=== PATIENT | male | born 2000 | race American Indian/Alaskan Native ===

== ENCOUNTER 2025-05-28 14:21 | Emergency (ER) | payer OTHER, MEDICAID, SELFPAY ==
[2025-05-28 14:31] VITALS: BP 110/77; PULSE 91; RESP 17; TEMP 36.8; O2SAT 98; BMI 21.9
--- NOTE | 2025-05-28 14:40 | XR_ITS ---
Examination: CT abdomen and pelvis without contrast. Coronal 3-D reconstructions. Sagittal 2-D reconstructions. Date and time of exam:May 28, 2025 1805 hours Comparison February 25, 2023 INDICATIONS: Tenderness and bleeding around the patient's ostomy site CTDI: vol (mGy): 6.03 DLP: (mGycm): 40 Technique: Axial images of the abdomen have been obtained, 3 mm slice thickness Intravenous contrast material has not been administered. Low dose protocols were performed. One or more of the following dose reduction techniques were used; automated exposure control, adjustment of the mA and/or KV according to patient size, use of iterative reconstruction technique. Findings: No focal liver or splenic lesions No gallstones No pancreatic mass No renal or ureteral calculi, no hydronephrosis IVC filter satisfactory position No abscess or inflammation around the patient's ostomy site No bowel obstruction No diverticulitis Intact urinary bladder No prostatomegaly The osseous structures are intact IMPRESSION: No abscess or inflammation around the patient's ostomy site
--- NOTE | 2025-05-28 14:40 | PD.EDRME ---
Rapid Medical Screening Exam E Arrival date/time: 05/28/25 14:21 24-year-old male with a history of a colostomy presents to the emergency room with a chief complaint of pain tenderness and bleeding around his ostomy. I have greeted and performed a focused initial assessment of this patient. A comprehensive ED assessment and evaluation of the patient, analysis of all test results, and completion of the medical decision making process will be conducted by additional ED providers. Chief Complaint: Abdominal Pain Vital signs: Vital Signs Temperature 98.3 F 05/28/25 14:31 Pulse Rate 91 05/28/25 14:31 Respiratory Rate 17 05/28/25 14:31 Blood Pressure 110/77 05/28/25 14:31 Pulse Oximetry (%) 98 05/28/25 14:31 Oxygen Delivery Method Room Air 05/28/25 14:31 Vital signs reviewed by provider: Yes
[2025-05-28 15:03] LABS: Basophils # (Auto) 0.0 Thou/mm3 (0.0-0.2); Basophils % (Auto) 0 % (0-2.5); Eosinophils # (Auto) 0.0 Thou/mm3 (0.0-0.5); Eosinophils % (Auto) 0 % (0-10); Hematocrit 41.2 % (41.0-53.0); Hemoglobin 14.1 g/dL (13.5-16.0); Immature Granulocytes Auto 0.02 Thou/mm3 (0.00-0.00); Lymphocytes # (Auto) 2.3 Thou/mm3 (1.0-4.8); Lymphocytes % (Auto) 33 % (10-50); Mean Corpuscular HGB Conc 34.2 g/dl (31.0-37.0); Mean Corpuscular Hemoglobin 29.1 pg (25.0-35.0); Mean Corpuscular Volume 85 fL (80-100); Monocytes # (Auto) 0.5 Thou/mm3 (0.0-0.8); Monocytes % (Auto) 7 % (0-12); Neutrophils # (Auto) 4.2 Thou/mm3 (1.8-7.7); Neutrophils % (Auto) 60 % (37-80); Nucleated Red Blood Cell # 0.00 Thou/mm3 (0.00-0.00); Nucleated Red Blood Cell % 0 /100 WBC (0); Platelet Count 272 Thou/mm3 (140-440); RDW Standard Deviation 39.0 fL (35.1-43.9); Red Blood Count 4.84 Miln/mm3 (4.50-5.90); White Blood Count 7.1 Thou/mm3 (3.8-10.6)
[2025-05-28] MEDS: HYDROcodone/APAP 5/325 TABLET 1 TAB PO (15:08)
[2025-05-28 15:33] LABS: Anion Gap 10 (7-16); Blood Urea Nitrogen 5 mg/dL (9-23); Carbon Dioxide 26.9 mMol/L (20.0-31.0); Chloride 103 mMol/L (98-107); Creatinine (Component) 0.7 mg/dL (0.6-1.3); Potassium 4.3 mMol/L (3.4-5.1); Sodium 140 mMol/L (136-145)
[2025-05-28 15:34] LABS: Alanine Aminotransferase 9 U/L (10-49); Albumin, Serum 4.9 gm/dL (3.5-5.0); Albumin/Globulin Ratio 1.6 (1.2-2.2); Alkaline Phosphatase 59 U/L (46-116); Aspartate Amino Transferase 13 U/L (0-34); BUN/Creatinine Ratio 7 Ratio (12-20); Bilirubin,Total 3.0 mg/dL (0.3-1.2); Calcium 9.8 mg/dL (8.3-10.6); Calcium (Corrected) 9.8 mg/dL (8.5-10.1); Estimated Creatinine Clearance 144.9 mL/min (>60); Globulin 3.1 gm/dL (2.3-3.5); Glucose 104 mg/dL (74-106); Lipase 25 U/L (12-53); Osmolality,Calculated 276 (275-295); Total Protein 8.0 gm/dL (5.7-8.2); eGFR > 60 See Note
--- NOTE | 2025-05-28 16:08 | PD.EDADULT ---
ED General RME/HPI General Chief complaint: Abdominal Pain Stated complaint: Abdominal pain to left of ostomy site Time Seen by Provider: 05/28/25 16:09 Arrival date/time: 05/28/25 14:21 RME / HPI RME / HPI narrative: 05/28/25 14:21 24-year-old male with a history of a colostomy presents to the emergency room with a chief complaint of pain tenderness and bleeding around his ostomy. I have greeted and performed a focused initial assessment of this patient. A comprehensive ED assessment and evaluation of the patient, analysis of all test results, and completion of the medical decision making process will be conducted by additional ED providers. Related Data Home Medications ?Medication ?Instructions ?Recorded ?Confirmed hydrocodone 5 mg-acetaminophen 325 1 tab PO 3XD 12/03/22 02/25/23 mg tablet albuterol 90 mcg/actuation aerosol 90 mcg inhalation Q6H PRN Wheezing 02/25/23 03/04/23 inhaler famotidine 20 mg tablet 20 mg PO BID 02/25/23 02/25/23 hydroxyzine HCl 25 mg tablet 25 mg PO QID PRN Anxiety 02/25/23 02/25/23 pantoprazole 40 mg tablet,delayed 40 mg PO QDAY 02/25/23 02/25/23 release promethazine 25 mg tablet 25 mg PO Q6H PRN Nausea And 02/25/23 02/25/23 Vomiting Previous Rx's ?Medication ?Instructions ?Recorded folic acid 1 mg tablet 1 mg PO QDAY 30 days #30 tabs 12/17/22 metoprolol tartrate 25 mg tablet 25 mg PO BID 30 days #60 tabs 12/24/22 morphine 15 mg tablet,extended 15 mg PO Q12H PRN severe pain 03/06/23 release (scale score 7-10) #8 tabs tramadol 50 mg tablet 50 mg PO BID PRN pain 5 days #10 05/28/25 tabs Allergies Allergy/AdvReac Type Severity Reaction Status Date / Time Fish Containing Products Allergy Mild swelling Verified 05/28/25 14:26 Review of Systems Review of Systems Systems Reviewed: All systems reviewed, normal except as documented ED Exam Narrative Physical exam: GENERAL: NAD, AAOx3 HEENT: Moist mucosa. Eyes open, symmetrical, & clear CARDIO: Heart RRR, no obvious murmurs PULM: No noted coughing/dyspnea CTA B/L, no R/W/R GI: Abdomen soft, nondistended, pain on palpation in ostomy site no pain noted on ostomy bag SKIN/MSK/EXT: No wounds/rashes/edema/amputations, no pain on palpation. Pedal pulses present B/L NEURO: AAOx3, no focal neuro deficits, able to move all 4 extremities Course Course Course Narrative: See MDM Quality Measures none Orders Category Date Time Status Insert IV NOW Care 05/28/25 16:[address] abdomen pelvis wo con Stat Exams 05/28/25 14:40 Completed US gall bladder Stat Exams 05/28/25 16:18 Completed CBC Stat Lab 05/28/25 14:47 Completed CMP [Comprehensive Metabolic Panel] Stat Lab 05/28/25 14:47 Completed Lipase Stat Lab 05/28/25 14:47 Completed UA [Urinalysis] Stat Lab 05/28/25 14:40 Ordered Urine Culture Stat Lab 05/28/25 14:40 Ordered HYDROcodone*/APAP 5/325 [Lawrence 5/325] Med 05/28/25 14:40 Discontinued 1 tab PO X1 ONE HYDROmorphone INJ [Dilaudid Inj] Med 05/28/25 17:33 Discontinued 0.5 mg IVP X1 ONE Morphine Inj Med 05/28/25 16:19 Discontinued 2 mg IVP X1 ONE Ringers Lactated 1000 ml [Lactated Ringers] 1,000 ml Med 05/28/25 16:20 Discontinued IV 999 mls/hr traMADol HCL [Ultram] Med 05/28/25 17:51 Once 50 mg PO X1 ONE Vital Signs Vital signs: Vital Signs Temperature 98.3 F 05/28/25 14:31 Pulse Rate 91 05/28/25 14:31 Respiratory Rate 17 05/28/25 14:31 Blood Pressure 110/77 05/28/25 14:31 Pulse Oximetry (%) 98 05/28/25 14:31 Oxygen Delivery Method Room Air 05/28/25 14:31 Discharge Plan Plan Patient Disposition: HOME (Self Care) Prescriptions/Referrals Prescriptions/Med Rec: New tramadol 50 mg tablet 50 mg PO BID PRN (Reason: pain) 5 Days Qty: 10 0RF No Action hydrocodone-acetaminophen 5-325 mg tablet 1 tab PO 3XD folic acid 1 mg tablet 1 mg PO QDAY 30 Days Qty: 30 3RF metoprolol tartrate 25 mg tablet 25 mg PO BID 30 Days Qty: 60 2RF famotidine 20 mg Tablet 20 mg PO BID pantoprazole 40 mg Tablet,Delayed Release (Dr/Ec) 40 mg PO QDAY promethazine 25 mg Tablet 25 mg PO Q6H PRN (Reason: Nausea And Vomiting) hydroxyzine HCl 25 mg Tablet 25 mg PO QID PRN (Reason: Anxiety) albuterol 90 mcg/actuation Aerosol 90 mcg INHALATION Q6H PRN (Reason: Wheezing) morphine 15 mg tablet extended release 15 mg PO Q12H MDD 30 mg PRN (Reason: severe pain (scale score 7-10)) Qty: 8 0RF Referrals: Gordon Bravo PA-C [Primary Care Provider] - In 1 week Problem List Clinical Impression: Abdominal pain Patient/Caregiver Discharge Instructions Additional Instructions: Patient at this time can be safely discharged patient is vital signs are all stable and lab work and imaging studies are all negative for acute pathology. You have been prescribed tramadol 50 mg every 12 as needed please take this medication only as necessary. Please follow up with GI specialist Dr. Lazo at his office. [address] [place] [place] [address], Patient is instructed should his symptoms recur or worsen patient is instructed to return to the ER. Print Language: Belgian Stand Alone Forms: Nimisha Award Info., Patient Portal Info Letter MDM Narrative MDM hospital course: 24-year-old male with past medical history of hernia surgery, status post colostomy presented to the ED due to abdominal pain. Patient states that around 3 days ago patient started having very bad abdominal pain near his ostomy site when he checked it he noticed that he was having romie blood from his ostomy site. Pain has continued until today and blood comes out whenever he eats. Patient has stopped eating around 2 days ago as he is afraid of more blood coming out. On examination ostomy site looks clean no signs of blood in bag or in ostomy site. He denies drinking alcohol, cigarette use, illicit substances. He denies fever, chills, shortness of breath, palpitations, chest pain, recent travel, sick contacts. Labs reviewed CBC within normal limits, CMP shows elevated bilirubin 1619: Gallbladder ultrasound ordered, morphine 2 mg IV x 1 given 174: Spoke to gastroenterology who recommended following up with him as an outpatient for review of his ostomy. Patient at this time can be safely discharged patient is vital signs are all stable and lab work and imaging studies are all negative for acute pathology. Patient is instructed should his symptoms recur or worsen patient is instructed to return to the ER. Medication Administration(s) Medication Administration History Discontinued Medications Hydrocodone Bitart/Acetaminophen (Hydrocodone/Apap 5/325 Tablet) 1 tab PO X1 ONE Stop: 05/28/25 14:41 Last Admin: 05/28/25 15:08 Dose: 1 tab Documented By: ROEL Hydromorphone HCl (Hydromorphone Inj 2 Mg/Ml Vial) 0.5 mg IVP X1 ONE Stop: 05/28/25 17:34 Lactated Ringer's (Lactated Ringers) 1,000 mls @ 999 mls/hr IV .Q1H1M ONE Stop: 05/28/25 17:20 Last Infusion: 05/28/25 17:42 Dose: Infused Documented By: Admin: 05/28/25 16:41 Dose: 999 mls/hr Documented By: MECCA Morphine Sulfate (Morphine Sulf Inj 10 Mg/Ml Vial) 2 mg IVP X1 ONE Stop: 05/28/25 16:20 Last Admin: 05/28/25 16:39 Dose: 2 mg Documented By: DB
--- NOTE | 2025-05-28 16:18 | XR_ITS ---
Examination: Abdomen sonogram, Limited Date and time of exam: May 28, 2025, 1628 hours INDICATIONS: Right lower abdominal pain at the ostomy site 3 days with elevated bili ribbon Technique: Real-time cortez scale transabdominal sonographic images of the upper abdomen obtained. Findings: Negative for gallstones Gallbladder wall 0.4 cm no edema Common bile duct 0.1 cm Pancreatic head 1.2 cm There are 14.9 cm no liver lesions Normal hepatopedal portal venous flow Patent IVC IMPRESSION: Negative for cholelithiasis, negative for cholecystitis
[2025-05-28] MEDS: MORPHINE SULF INJ 10 MG/ML VIAL 2 MG IVP (16:39)
[2025-05-28] MEDS: RINGERS LACTATED 1000 ML 1,000 ML 999 ML IV (16:41)
--- NOTE | 2025-05-28 18:08 | PC.CC ---
Talyer PURCELL was consulted by flight dynamicist Alicia regarding resources for retirement for patient. Tayler PURCELL made face to face contact with patient introduced self, role, and reason for visit to patient. Patient appeared alert and oriented to self, location, and situation. ASW explained to the patient that unfortunately we do not provide vouchers to hotel/motel but we can provide him with different retirement information in [facility]. Patient was receptive to information. ASW provided patient with [facility] Resource Guide that had retirement information. Patient was provided with meal. ASW provided update to flight dynamicist Alicia.
[2025-05-28] MEDS: ONDANSETRON ODT 4 MG TABRAP PO (19:37)
== END 2025-05-28 19:40 | disposition home or self-care (01) ==
PROVIDERS: Nurse Practitioner Family; Emergency Provider Student in an Organized Health Care Education/Training Program; PCP Physician Assistant
DX: R10.9 Unspecified abdominal pain (principal)
CPT/HCPCS: 36415; 74176; 76705; 80053; 81001; 83690; 85025; 87086; 96361; 96374; 99284; J2270; J7120; Q0162; A9270

== ENCOUNTER 2025-05-28 20:09 | Emergency (ER) | payer OTHER, MEDICAID, SELFPAY ==
[2025-05-28 20:12] VITALS: BP 123/74; PULSE 80; RESP 18; TEMP 37.1; O2SAT 98; BMI 21.9
--- NOTE | 2025-05-28 20:24 | PD.EDSEIZ ---
ED Seizures RME/HPI General Chief Complaint: Seizure Stated Complaint: HAD SZ IN THE LOBBY OF [facility] Time Seen by Provider: 05/28/25 20:45 Arrival date/time: 05/28/25 20:09 RME / HPI RME / HPI Narrative: This section includes all my notes and documentations, including HPI, PE, and ED course. Bk Meeks MD HPI: 24 y/o male with Hx of Homelessness and PTSD presents with possible seizure just [employer]. 30 minutes ago, he was discharged from our ER. He presented with abdominal pain. After extensive workup, including blood tests and CT scan and ultrasound, he was discharged. Staff had difficulty discharging him because he declined to be discharged. Took multiple visits and talks by different staff members to discharge him. After discharge, he was walking around our ER. He reports almost passing out and thinks he had a seizure. He has history of seizures. No seizure medications currently. He didn't fall. Currently, no headache or dizziness. No speech or visual impairment. No loss of power in arms or legs. No chest pain or shortness of breath. No other complaints. ROS: All negative except as documented in HPI. Physical Exam: General: Alert and oriented. No acute distress. Eyes: Conjunctivae and lids clear. EOMI. PERRL. ENT: No signs of head trauma. Neck: Supple. No tenderness. Heart: RRR. Lungs: No respiratory distress. Good air movement. No rhonchi, wheezing, rales. Chest: No tenderness. Abdomen: Soft and nontender. Normal bowel sounds. No distension. No rebound or guarding. Back: No tenderness. Skin: Warm and dry. Neuro: Alert and oriented X 3. Cranial Nerves II-XII grossly intact. No peripheral motor deficits. Musculoskeletal: All major joints and bones are not tender with no limited ROM. I reviewed all diagnostic tests from his ER visit today several hours ago. Made decision no new diagnostic tests are indicated at this time. At this point, diagnoses include: Seizure-like activity. Treatment here included: Zofran 4 mg, Keppra 1 G. Patient remained stable. Prescribed Keppra and recommended more outpatient workup. Based on my best medical judgment, made decision no further evaluation or treatment indicated at this time. Patient understands and agrees to the discharge instructions customized and printed, see below. Discharge Instructions from Dr. Meeks printed for you: 1.? After listening to your story and my physical exam and reviewing your evaluation/treatment here an hour ago, no new diagnostic tests are indicated. Follow all the instructions given to you from here when you were discharged an hour ago. 2.? To prevent another possible seizure, take Keppra as prescribed until cleared by a doctor taking care of you. 3.? See a private doctor on 05/31/2025 for recheck and further care. Ask to review all test results and official radiology reports, to make sure you receive all necessary follow-ups and monitoring. Ask for help with more workup and treatment not available here in the ER, including EEG (testing electrical activity of the brain) and referral to see a neurologist (seizure specialist). 4.? Seek immediate medical care with another seizure or with any concerns. Bk Meeks MD Related Data Home Medications ?Medication ?Instructions ?Recorded ?Confirmed hydrocodone 5 mg-acetaminophen 325 1 tab PO 3XD 12/03/22 02/25/23 mg tablet albuterol 90 mcg/actuation aerosol 90 mcg inhalation Q6H PRN Wheezing 02/25/23 03/04/23 inhaler famotidine 20 mg tablet 20 mg PO BID 02/25/23 02/25/23 hydroxyzine HCl 25 mg tablet 25 mg PO QID PRN Anxiety 02/25/23 02/25/23 pantoprazole 40 mg tablet,delayed 40 mg PO QDAY 02/25/23 02/25/23 release promethazine 25 mg tablet 25 mg PO Q6H PRN Nausea And 02/25/23 02/25/23 Vomiting Previous Rx's ?Medication ?Instructions ?Recorded folic acid 1 mg tablet 1 mg PO QDAY 30 days #30 tabs 12/17/22 metoprolol tartrate 25 mg tablet 25 mg PO BID 30 days #60 tabs 12/24/22 morphine 15 mg tablet,extended 15 mg PO Q12H PRN severe pain 03/06/23 release (scale score 7-10) #8 tabs levetiracetam 500 mg tablet 500 mg PO BID #60 tabs 05/28/25 (Keppra) tramadol 50 mg tablet 50 mg PO BID PRN pain 5 days #10 05/28/25 tabs Allergies Allergy/AdvReac Type Severity Reaction Status Date / Time Fish Containing Products Allergy Mild swelling Verified 05/28/25 20:16 Review of Systems Review of Systems Systems Reviewed: All systems reviewed, normal except as documented Past Medical History Past Medical History CARDIAC: Positive Cardiac Disorders and Deep Vein Thrombosis GASTROINTESTINAL: Positive Gastrointestinal Disorders, Pancreatitis (PSEUDOCYST) and Gastrointestinal Bleed PSYCHO/SOCIAL: Positive Post Traumatic Stress Disorder OTHER HISTORY: Positive Chicken Pox and Clostridium Difficile Surgical History SURGICAL: Positive Abdominal Surgery ED Exam Narrative Physical exam: Refer to [facility] Course Quality Measures none Orders Category Date Time Status Ondansetron Odt [Zofran Odt] Med 05/28/25 20:45 Discontinued 4 mg PO X1 ONE levETIRAcetam [Keppra] Med 05/28/25 20:45 Discontinued 1,000 mg PO X1 ONE Vital Signs Vital signs: Vital Signs Temperature 98.7 F 05/28/25 20:12 Pulse Rate 80 05/28/25 20:12 Respiratory Rate 18 05/28/25 20:12 Blood Pressure 123/74 05/28/25 20:12 Pulse Oximetry (%) 98 05/28/25 20:12 Oxygen Delivery Method Room Air 05/28/25 20:12 Seizure MDM Narrative MDM Narrative:: Scribe Attestation: I, Noemy Fernández, am scribing for and in the presence of Dr. Meeks. Provider Notation: Although this document has been carefully reviewed, there may still be some phonetic and other typographical errors.? These errors are purely grammatical due to imperfections in the software program and should not be construed in any way to? compromise the substance of the patient's medical care during this visit. 24 y/o male with Hx of Homelessness and PTSD presents with possible seizure just [employer]. 30 minutes ago, he was discharged from our ER. He presented with abdominal pain. After extensive workup, including blood tests and CT scan and ultrasound, he was discharged. Staff had difficulty discharging him because he declined to be discharged. Took multiple visits and talks by different staff members to discharge him. After discharge, he was walking around our ER. He reports almost passing out and thinks he had a seizure. He has history of seizures. No seizure medications currently. He didn't fall. Currently, no headache or dizziness. No speech or visual impairment. No loss of power in arms or legs. No chest pain or shortness of breath. No other complaints. Patient data External records reviewed:: [facility] previous records (Reviewed prior ED records from 05/28/2025. Patient was seen for Abdominal pain.) Clinical information provided by:: patient Social determinants that could affect healthcare access:: housing (Homeless) Patient has the following chronic illnesses:: Deep Vein Thrombosis, Pancreatitis (PSEUDOCYST), Gastrointestinal Bleed, Post Traumatic Stress Disorder How is presenting disease/condition affected by chronic disease/condition?: exacerbated by Evaluation data The following diagnostics were reviewed and interpreted by me:: other (specify) (N/A) Lab and/or radiology exams considered but not ordered:: None Interpretation Summary: No diagnostics ordered. Medications / Prescriptions Medications or Prescriptions considered but not ordered:: None Medication administrations:: Medication Administration History Discontinued Medications Levetiracetam (Levetiracetam 250 Mg Tablet) 1,000 mg PO X1 ONE Stop: 05/28/25 20:46 Last Admin: 05/28/25 21:09 Dose: 1,000 mg Documented By: REGINO Ondansetron HCl (Ondansetron Odt 4 Mg Tabrap) 4 mg PO X1 ONE; Protocol Stop: 05/28/25 20:46 Last Admin: 05/28/25 21:10 Dose: 4 mg Documented By: REGINO Zofrbrady 4 mg, Keppra 1 G. Consultations Consultation(s) initiated? (list below): No Diagnosis Seizure Differential Diagnosis: intractable seizure disorder, febrile convulsion, focal seizure, generalized seizure, new onset seizure, epileptic seizure and status epilepticus Most likely diagnosis given after review of the tests above:: Seizure-like activity Admission Indicated Admission indicated?: not indicated Explain why admission is indicated or not indicated:: With significant improvement and no condition needing emergent intervention, there was no indication for admission. Admission Request Was there a request for admission?: No Disposition Plan Disposition Plan: Discharge Discharge Attestation Discharge Attestation: The patient and all family members were given an opportunity to ask questions and understood the discharge instructions. Discharge instructions specifically effects, indications for sooner follow up or return to the emergency department, and the expected course of current diagnosis. Patient condition: Stable Discharge Plan Plan Patient Disposition: HOME (Self Care) Prescriptions/Referrals Prescriptions/Med Rec: New levetiracetam [Keppra] 500 mg tablet 500 mg PO BID Qty: 60 0RF No Action hydrocodone-acetaminophen 5-325 mg tablet 1 tab PO 3XD folic acid 1 mg tablet 1 mg PO QDAY 30 Days Qty: 30 3RF metoprolol tartrate 25 mg tablet 25 mg PO BID 30 Days Qty: 60 2RF famotidine 20 mg Tablet 20 mg PO BID pantoprazole 40 mg Tablet,Delayed Release (Dr/Ec) 40 mg PO QDAY promethazine 25 mg Tablet 25 mg PO Q6H PRN (Reason: Nausea And Vomiting) hydroxyzine HCl 25 mg Tablet 25 mg PO QID PRN (Reason: Anxiety) albuterol 90 mcg/actuation Aerosol 90 mcg INHALATION Q6H PRN (Reason: Wheezing) morphine 15 mg tablet extended release 15 mg PO Q12H MDD 30 mg PRN (Reason: severe pain (scale score 7-10)) Qty: 8 0RF tramadol 50 mg tablet 50 mg PO BID PRN (Reason: pain) 5 Days Qty: 10 0RF Referrals: No Primary/Family,Physician [Primary Care Provider] - In 1 week Problem List Clinical Impression: Seizure-like activity Patient/Caregiver Discharge Instructions Discharge Activity: activity as tolerated Education Materials: ED Seizure, Recurrent (Adult) Additional Instructions: Discharge Instructions from Dr. Meeks printed for you: 1.? After listening to your story and my physical exam and reviewing your evaluation/treatment here an hour ago, no new diagnostic tests are indicated. Follow all the instructions given to you from here when you were discharged an hour ago. 2.? To prevent another possible seizure, take Keppra as prescribed until cleared by a doctor taking care of you. 3.? See a private doctor on 05/31/2025 for recheck and further care. Ask to review all test results and official radiology reports, to make sure you receive all necessary follow-ups and monitoring. Ask for help with more workup and treatment not available here in the ER, including EEG (testing electrical activity of the brain) and referral to see a neurologist (seizure specialist). 4.? Seek immediate medical care with another seizure or with any concerns. Print Language: Armenian Stand Alone Forms: Nimisha Award Info., Patient Portal Info Letter
[2025-05-28] MEDS: ONDANSETRON ODT 4 MG TABRAP PO (21:10)
== END 2025-05-28 21:16 | disposition home or self-care (01) ==
PROVIDERS: Emergency Provider Emergency Medicine
DX: R56.9 Unspecified convulsions (principal)
CPT/HCPCS: 99283; Q0162; A9270

== ENCOUNTER 2025-05-28 23:51 | Emergency (ER) | payer OTHER, MEDICAID, SELFPAY ==
--- NOTE | 2025-05-28 23:54 | PD.EDSEIZ ---
ED Seizures RME/HPI General Chief Complaint: Seizure Stated Complaint: SYNCOPE Time Seen by Provider: 05/29/25 00:53 Arrival date/time: 05/28/25 23:51 RME / HPI RME / HPI Narrative: This section includes all my notes and documentations, including HPI, PE, and ED course. Bk Meeks MD HPI: 24 y/o male with Hx of PTSD and HTN BIBA with possible fall and possible seizure. He was seen in our ER yesterday twice. He declined to be discharged and it was difficult discharging him. Possibly, his mom heard him fall in another room. Possible seizure activity noted. Patient reports remembering the seizure. He reports no head injury. Currently, he reports headache. No speech or visual impairment. No chest pain or shortness of breath. No loss of power in the arms or legs. No other complaints. ROS: All negative except as documented in HPI. Physical Exam: General: Alert and oriented. No acute distress. Eyes: Conjunctivae and lids clear. EOMI. PERRL. ENT: No signs of head trauma. Neck: Supple. No tenderness. Heart: RRR. Lungs: No respiratory distress. Good air movement. No rhonchi, wheezing, rales. Chest: No tenderness. Abdomen: Soft and nontender. Normal bowel sounds. No distension. No rebound or guarding. Back: No tenderness. Skin: Warm and dry. Neuro: Alert and oriented X 3. Cranial Nerves II-XII grossly intact. No peripheral motor deficits. Musculoskeletal: All major joints and bones are not tender with no limited ROM. I reviewed EMS notes. I reviewed all diagnostic test results: My interpretation of the CXR is NAD. My review of the Head/Brain CT report is NAD. My review of the Facial Bones CT report is no fracture. My review of the C-Spine CT report is no fracture. My review of the Chest/Abdomen/Pelvis CT report is NAD. Blood and urine test remarkable for positive UDS for opiates and fentanyl. At this point, diagnoses include: Possible recurrent seizures with positive UDS for opiates and fentanyl. Treatment here included: IVF, Keppra 2,000 mg, Zofran 4 mg. During the ED course, patient had seizure-like activity. With pain stimulus rubbing his chest, he woke up and mental status returned to baseline. Patient demanded narcotics for his severe headache. Dilaudid 0.1 mg given twice. Recommended more outpatient management. Based on my best medical judgment, made decision no further evaluation or treatment indicated at this time. Patient understands and agrees to the discharge instructions customized and printed, see below. Discharge Instructions from Dr. Meeks printed for you: 1. After extensive evaluation, there is no life-threatening condition. Such as stroke or brain tumor. 2. To prevent another seizure like activity, take Keppra as prescribed until cleared by a doctor taking care of you. 3. See a private doctor on 05/31/2025 for recheck and further care. Ask to review all test results and official radiology reports from your multiple visits here today and yesterday, to make sure you receive all necessary follow-ups and monitoring. Ask for help with more workup and treatment, including EEG (testing electrical activity of the brain) and referral to see a neurologist (seizure specialist). To make sure there is no serious intra-abdominal condition, ask for help with more investigation not available here in the ER. Such as EGD or scoping the stomach, colonoscopy or scoping the colon, and referral to see midlevel provider. Until cleared by a doctor taking care of you, avoid activity alone (including standing and walking and driving) to prevent severe injury if you were to have another seizure-like activity. 4. Seek immediate medical care with any concerns. Bk Meeks MD Related Data Home Medications ?Medication ?Instructions ?Recorded ?Confirmed hydrocodone 5 mg-acetaminophen 325 1 tab PO 3XD 12/03/22 02/25/23 mg tablet albuterol 90 mcg/actuation aerosol 90 mcg inhalation Q6H PRN Wheezing 02/25/23 03/04/23 inhaler famotidine 20 mg tablet 20 mg PO BID 02/25/23 02/25/23 hydroxyzine HCl 25 mg tablet 25 mg PO QID PRN Anxiety 02/25/23 02/25/23 pantoprazole 40 mg tablet,delayed 40 mg PO QDAY 02/25/23 02/25/23 release promethazine 25 mg tablet 25 mg PO Q6H PRN Nausea And 02/25/23 02/25/23 Vomiting Previous Rx's ?Medication ?Instructions ?Recorded folic acid 1 mg tablet 1 mg PO QDAY 30 days #30 tabs 12/17/22 metoprolol tartrate 25 mg tablet 25 mg PO BID 30 days #60 tabs 12/24/22 morphine 15 mg tablet,extended 15 mg PO Q12H PRN severe pain 03/06/23 release (scale score 7-10) #8 tabs levetiracetam 500 mg tablet 500 mg PO BID #60 tabs 05/28/25 (Keppra) tramadol 50 mg tablet 50 mg PO BID PRN pain 5 days #10 05/28/25 tabs gabapentin 100 mg capsule 100 mg PO BID pain #20 caps 05/29/25 (Neurontin) levetiracetam 500 mg tablet 500 mg PO BID #60 tabs 05/29/25 (Keppra) levofloxacin 500 mg tablet 500 mg PO Q24H infection 7 days #7 05/29/25 tabs Allergies Allergy/AdvReac Type Severity Reaction Status Date / Time Fish Containing Products Allergy Mild swelling Verified 05/29/25 07:30 Review of Systems Review of Systems Systems Reviewed: All systems reviewed, normal except as documented Past Medical History Past Medical History CARDIAC: Positive Cardiac Disorders, Deep Vein Thrombosis and Hypertension GASTROINTESTINAL: Positive Gastrointestinal Disorders, Pancreatitis and Gastrointestinal Bleed PSYCHO/SOCIAL: Positive Post Traumatic Stress Disorder OTHER HISTORY: Positive Chicken Pox and Clostridium Difficile Surgical History SURGICAL: Positive Abdominal Surgery ED Exam Narrative Physical exam: Refer to HPI Course Course Course Narrative: CXR is ordered for determining the etiology of shortness of breath. Quality Measures none Orders Category Date Time Status EKG (ED ONLY) *Do not use* NOW Care 05/29/25 00:03 Completed Saline [Insert IV] NOW Care 05/29/25 00:01 Completed Straight [In and Out Catheter] X1 Care 05/29/25 00:[address] cervical spine wo con Stat Exams 05/29/25 00:[address] chest abdomen pelvis wo Stat Exams 05/29/25 00:[address] facial bones wo con Stat Exams 05/29/25 00:[address] head/brain wo con Stat Exams 05/29/25 00:02 Completed EKG (ED Only) Stat Exams 05/29/25 00:03 Ordered XR chest 1V portable Stat Exams 05/29/25 00:03 Completed Acetaminophen Stat Lab 05/29/25 00:36 Completed Alcohol, Blood Medical Stat Lab 05/29/25 00:36 Completed Ammonia Stat Lab 05/29/25 00:36 Completed Amylase Stat Lab 05/29/25 00:36 Completed Beta Hydroxybutyrate Stat Lab 05/29/25 00:36 Completed Bilirubin,Direct Stat Lab 05/29/25 00:36 Completed CBC Stat Lab 05/29/25 00:36 Completed CK [Creatine Kinase] Stat Lab 05/29/25 00:36 Completed CMP [Comprehensive Metabolic Panel] Stat Lab 05/29/25 00:36 Completed CRP [C-Reactive Protein] Stat Lab 05/29/25 00:36 Completed Drug Screen,Urine Stat Lab 05/29/25 02:22 Completed Free T4 (Free Thyroxine) Stat Lab 05/29/25 00:36 Completed Lactate (Lactic Acid) Stat Lab 05/29/25 00:36 Completed Lipase Stat Lab 05/29/25 00:36 Completed Magnesium Stat Lab 05/29/25 00:36 Completed PT [Prothrombin Time with INR] Stat Lab 05/29/25 00:36 Completed PTT [Partial Thromboplastin Time] Stat Lab 05/29/25 00:36 Completed Procalcitonin Stat Lab 05/29/25 00:36 Completed Salicylate Stat Lab 05/29/25 00:36 Completed TSH [Thyroid Stimulating Hormone] Stat Lab 05/29/25 00:36 Completed Troponin I Stat Lab 05/29/25 00:36 Completed UA, C/S IF [Urinalysis, C/S if Indicated] Stat Lab 05/29/25 02:22 Completed ACETAMINOPHEN w/COD 300-30 [Tylenol w/Cod #3] Med 05/29/25 01:04 Discontinued 2 tab PO X1 ONE HYDROmorphone INJ [Dilaudid Inj] Med 05/29/25 02:07 Discontinued 0.1 mg IVP X1 ONE HYDROmorphone INJ [Dilaudid Inj] Med 05/29/25 04:14 Discontinued 0.1 mg IVP X1 ONE LORazepam [Ativan Inj] Med 05/29/25 00:02 Discontinued 1 mg IVP X1 ONE Ondansetron Inj [Zofran Inj] Med 05/29/25 00:02 Discontinued 4 mg IVP X1 ONE Sodium Chloride 0.9% 1000 ml [Ns] 1,000 ml Med 05/29/25 00:02 Discontinued IV 999 mls/hr levETIRAcetam INJ [Keppra Inj] Med 05/29/25 00:02 Discontinued 1,500 mg IVP X1 ONE levETIRAcetam INJ [Keppra Inj] Med 05/29/25 00:33 Discontinued 2,000 mg IVP X1 ONE Vital Signs Vital signs: Vital Signs Temperature 98.4 F 05/28/25 23:56 Pulse Rate 91 05/28/25 23:56 Respiratory Rate 19 05/28/25 23:56 Blood Pressure 114/73 05/28/25 23:56 Pulse Oximetry (%) 98 05/28/25 23:56 Seizure MDM Narrative MDM Narrative:: Scribe Attestation: INoemy, am scribing for and in the presence of Dr. Meeks. Provider Notation: Although this document has been carefully reviewed, there may still be some phonetic and other typographical errors.? These errors are purely grammatical due to imperfections in the software program and should not be construed in any way to? compromise the substance of the patient's medical care during this visit. 24 y/o male with Hx of PTSD and HTN BIBA from home presents with twitching and fall x just [employer]. Mother heard a loud noise in the kitchen and called EMS. Patient was just discharged from ED for seizure-like activity. Patient was treated with Keppra and Zofran. No other complaints. Patient data External records reviewed:: [facility] previous records (Reviewed prior ED record from 05/28/25. Patient was seen for Seizure-like activity.) and EMS form Clinical information provided by:: patient and EMS Social determinants that could affect healthcare access:: none Patient has the following chronic illnesses:: Deep Vein Thrombosis, Hypertension, Pancreatitis, Gastrointestinal Bleed, Post Traumatic Stress Disorder How is presenting disease/condition affected by chronic disease/condition?: exacerbated by Evaluation data The following diagnostics were reviewed and interpreted by me:: lab results, radiology exam(s) and EKG tracing(s) (My interpretation of the EKG: NSR (75 bpm) with no ST-T changes. Bk Meeks MD) Lab and/or radiology exams considered but not ordered:: None Interpretation Summary: Deep Vein Thrombosis, Hypertension, Pancreatitis, Gastrointestinal Bleed, Post Traumatic Stress Disorder Medications / Prescriptions Medications or Prescriptions considered but not ordered:: None Medication administrations:: Medication Administration History Discontinued Medications Acetaminophen/Codeine Phosphate (Acetaminophen W/Cod 300-30 Tablet) 2 tab PO X1 ONE Stop: 05/29/25 01:05 Last Admin: 05/29/25 01:12 Dose: 2 tab Documented By: IFTIKHAR Hydromorphone HCl (Hydromorphone Inj 2 Mg/Ml Vial) 0.1 mg IVP X1 ONE Stop: 05/29/25 02:08 Last Admin: 05/29/25 02:25 Dose: 0.1 mg Documented By: IFTIKHAR Hydromorphone HCl (Hydromorphone Inj 2 Mg/Ml Vial) 0.1 mg IVP X1 ONE Stop: 05/29/25 04:15 Last Admin: 05/29/25 04:46 Dose: 0.1 mg Documented By: IFTIKHAR Sodium Chloride (Ns) 1,000 mls @ 999 mls/hr IV .Q1H1M ONE Stop: 05/29/25 01:02 Last Infusion: 05/29/25 02:26 Dose: Infused Documented By: Admin: 05/29/25 01:05 Dose: 999 mls/hr Documented By: IFTIKHAR Levetiracetam (Levetiracetam Inj 100 Mg/Ml Vial 5ml) 1,500 mg IVP X1 ONE Stop: 05/29/25 00:03 Last Admin: 05/29/25 01:14 Dose: Not Given Documented By: IFTIKHAR Non-Admin Reason: Cancelled by Provider Levetiracetam (Levetiracetam Inj 100 Mg/Ml Vial 5ml) 2,000 mg IVP X1 ONE Stop: 05/29/25 00:34 Last Admin: 05/29/25 01:09 Dose: 2,000 mg Documented By: IFTIKHAR Lorazepam (Lorazepam 2 Mg/Ml Vial) 1 mg IVP X1 ONE Stop: 05/29/25 00:03 Last Admin: 05/29/25 01:14 Dose: Not Given Documented By: IFTIKHAR Non-Admin Reason: Cancelled by Provider Ondansetron HCl (Ondansetron Inj 2 Mg/Ml Inj 2 Ml) 4 mg IVP X1 ONE; Protocol Stop: 05/29/25 00:03 Last Admin: 05/29/25 01:06 Dose: 4 mg Documented By: IFTIKHAR IVF, Keppra 2,000 mg, Zofran 4 mg. Consultations Consultation(s) initiated? (list below): No Diagnosis Seizure Differential Diagnosis: intractable seizure disorder, febrile convulsion, focal seizure, generalized seizure, new onset seizure, epileptic seizure and status epilepticus Most likely diagnosis given after review of the tests above:: Recurrent seizures. Admission Indicated Admission indicated?: not indicated Explain why admission is indicated or not indicated:: With no condition needing emergent intervention, there was no indication for admission. Admission Request Was there a request for admission?: No Disposition Plan Disposition Plan: Discharge Discharge Attestation Discharge Attestation: The patient and all family members were given an opportunity to ask questions and understood the discharge instructions. Discharge instructions specifically effects, indications for sooner follow up or return to the emergency department, and the expected course of current diagnosis. Patient condition: Stable Discharge Plan Plan Patient Disposition: HOME (Self Care) Prescriptions/Referrals Prescriptions/Med Rec: New levetiracetam [Keppra] 500 mg tablet 500 mg PO BID Qty: 60 0RF No Action hydrocodone-acetaminophen 5-325 mg tablet 1 tab PO 3XD folic acid 1 mg tablet 1 mg PO QDAY 30 Days Qty: 30 3RF metoprolol tartrate 25 mg tablet 25 mg PO BID 30 Days Qty: 60 2RF famotidine 20 mg Tablet 20 mg PO BID pantoprazole 40 mg Tablet,Delayed Release (Dr/Ec) 40 mg PO QDAY promethazine 25 mg Tablet 25 mg PO Q6H PRN (Reason: Nausea And Vomiting) hydroxyzine HCl 25 mg Tablet 25 mg PO QID PRN (Reason: Anxiety) albuterol 90 mcg/actuation Aerosol 90 mcg INHALATION Q6H PRN (Reason: Wheezing) morphine 15 mg tablet extended release 15 mg PO Q12H MDD 30 mg PRN (Reason: severe pain (scale score 7-10)) Qty: 8 0RF levetiracetam [Keppra] 500 mg tablet 500 mg PO BID Qty: 60 0RF tramadol 50 mg tablet 50 mg PO BID PRN (Reason: pain) 5 Days Qty: 10 0RF gabapentin [Neurontin] 100 mg capsule 100 mg PO BID MDD 2 Qty: 20 0RF levofloxacin 500 mg tablet 500 mg PO Q24H MDD 1 7 Days Qty: 7 0RF Problem List Clinical Impression: Recurrent seizures Patient/Caregiver Discharge Instructions Discharge Activity: activity as tolerated Education Materials: ED Seizure, Recurrent (Adult) Additional Instructions: Discharge Instructions from Dr. Meeks printed for you: 1.? After extensive evaluation, there is no life-threatening condition.? Such as stroke or brain tumor. 2.? To prevent another seizure like activity, take Keppra as prescribed until cleared by a doctor taking care of you. 3.? See a private doctor on 05/31/2025 for recheck and further care. Ask to review all test results and official radiology reports from your multiple visits here today and yesterday, to make sure you receive all necessary follow-ups and monitoring. Ask for help with more workup and treatment, including EEG (testing electrical activity of the brain) and referral to see a neurologist (seizure specialist). To make sure there is no serious intra-abdominal condition, ask for help with more investigation not available here in the ER. Such as EGD or scoping the stomach, colonoscopy or scoping the colon, and referral to see midlevel provider. Until cleared by a doctor taking care of you, avoid activity alone (including standing and walking and driving) to prevent severe injury if you were to have another seizure-like activity. 4.? Seek immediate medical care with any concerns. Print Language: Cameroonian Stand Alone Forms: Nimisha Award Info., Patient Portal Info Letter
[2025-05-28 23:56] VITALS: BP 114/73; PULSE 91; RESP 19; TEMP 36.9; O2SAT 98
--- NOTE | 2025-05-29 00:02 | XR_ITS ---
Examination: CT brain head without contrast. 2-D sagittal coronal reconstructions Date and time of exam:May 29, 2025 0135 hours INDICATIONS: Onset seizure today COMPARISON: November 05, 2022 CTDI: vol (mGy):52.40 DLP: (mGycm):1043 Technique: Multiple CT axial sections of the brain have been obtained, 5 mm slice thickness. Contrast has not been administered. 2-D sagittal, coronal reconstructions have been obtained Low dose protocols were performed. One or more of the following dose reduction techniques were used; automated exposure control, adjustment of the mA and/or KV according to patient size, use of iterative reconstruction technique. Findings: No significant ventricular enlargement. Intra-axial or extra-axial hemorrhage density is not seen. No mass effect or midline shift Basal cisterns are not remarkable. Fourth ventricle is midline. Cranial vault intact. Impression: Negative for acute hemorrhage, mass effect or midline shift Consider elective brain MRI follow up pre and postcontrast, seizure protocol
--- NOTE | 2025-05-29 00:02 | XR_ITS ---
Examination: CT cervical spine without contrast 2-D sagittal reconstructions 2-D coronal reconstructions 3-D reconstructions. Exam date and time:May 29, 2025 at 0139 hours INDICATIONS: Seizure today, patient fell with injury to the neck, neck pain CTDI:vol (mGy) 13.66. DLP: (mGycm) 370. Technique: Multiple 2 mm axial sections of the cervical spine have been obtained. The coronal and sagittal reconstructions have been obtained. 3-D reconstructions have been obtained. Low dose protocols were performed. One or more of the following dose reduction techniques were used; automated exposure control, adjustment of the mA and/or KV according to patient size, use of iterative reconstruction technique. Findings: Axial sections demonstrate intact base of the skull. C1 exhibit satisfactory relationship to the odontoid. No acute cervical vertebral body fracture seen. Alignment posterior spinous processes satisfactory. Impression: No acute cervical fracture.
--- NOTE | 2025-05-29 00:02 | XR_ITS ---
Examination: CT maxillofacial, without intravenous contrast. 2-D sagittal reconstructions. 3-D reconstructions. Date and time of exam:May 29, 2025 0136 hours INDICATIONS: Patient fell today after seizure with injury to the face, facial pain CTDI: vol (mGy):15.21 DLP: (mGycm):320 Technique: Multiple axial images of maxillofacial region, 3.0 mm slice thickness. 2-D sagittal and coronal reconstructions. 3-D reconstructions. Low dose protocols were performed. One or more of the following dose reduction techniques were used; automated exposure control, adjustment of the mA and/or KV according to patient size, use of iterative reconstruction technique. Findings: Frontal bone is intact No nasal bone fractures Orbital rims intact The optic globes exhibit symmetry No depression zygomatic arches. Pterygoid plates maxilla and the mandible is intact IMPRESSION: No acute facial fracture.
--- NOTE | 2025-05-29 00:03 | XR_ITS ---
Examination: CT chest, without intravenous contrast. CT abdomen, without intravenous contrast. CT pelvis, without intravenous contrast. 2-D sagittal and coronal reconstructions. 3-D reconstructions. Date and time of exam:May 29 2025 1340 hours INDICATIONS: Seizure today, patient fell with injury to the chest and abdomen, chest pain abdomen pain CTDI vol (mgy) 10.61 DLP (MGycm)847 Technique: Multiple CT images, 3.0 mm slice thickness, obtained chest, abdomen, pelvis, with the high-resolution 64 slice scanner.. Sagittal and coronal 2-D reconstructions are obtained. 3-D reconstructions Low dose protocols were performed. One or more of the following dose reduction techniques were used; automated exposure control, adjustment of the mA and/or KV according to patient size, use of iterative reconstruction technique. Findings: The thoracic aorta pulmonary arteries intact No pneumopericardium No pneumothorax pulmonary contusion or hemothorax The sternum thoracic lumbar and sacral segments appear intact Ribs appear intact No liver or splenic or renal laceration IVC filter satisfactory position Right colostomy No bowel obstruction Aorta intact No free blood in the abdomen or pelvis Urinary bladder intact Hips bones of the pelvis intact Impression : Thoracic aorta pulmonary arteries intact No pneumopericardium, pneumothorax, pulmonary contusion or hemothorax. No abdominal parenchymal laceration Abdominal aorta intact. No free fluid in the abdomen or pelvis. Osseous structures appear intact
--- NOTE | 2025-05-29 00:03 | XR_ITS ---
Examination: AP chest single view TECHNIQUE: AP portable upright chest single view Date and time: May 29, 2025, 0122 hours INDICATIONS: Chest pain shortness of breath today. FINDINGS: Minimal scarring at the left base No pneumonia or pulmonary edema. Normal heart size. IMPRESSION: No pneumonia or pulmonary edema.
[2025-05-29 00:43] LABS: Lactate (Lactic Acid) 1.8 mMol/L (0.4-2.0)
[2025-05-29 00:50] VITALS: BMI 21.9
[2025-05-29 00:54] LABS: Basophils # (Auto) 0.0 Thou/mm3 (0.0-0.2); Basophils % (Auto) 0 % (0-2.5); Beta Hydroxybutyrate 0.1 mmol/L (<0.6); Eosinophils # (Auto) 0.0 Thou/mm3 (0.0-0.5); Eosinophils % (Auto) 0 % (0-10); Hematocrit 40.8 % (41.0-53.0); Hemoglobin 13.6 g/dL (13.5-16.0); Immature Granulocytes Auto 0.01 Thou/mm3 (0.00-0.00); Lymphocytes # (Auto) 1.5 Thou/mm3 (1.0-4.8); Lymphocytes % (Auto) 24 % (10-50); Mean Corpuscular HGB Conc 33.3 g/dl (31.0-37.0); Mean Corpuscular Hemoglobin 28.9 pg (25.0-35.0); Mean Corpuscular Volume 87 fL (80-100); Monocytes # (Auto) 0.4 Thou/mm3 (0.0-0.8); Monocytes % (Auto) 6 % (0-12); Neutrophils # (Auto) 4.3 Thou/mm3 (1.8-7.7); Neutrophils % (Auto) 69 % (37-80); Nucleated Red Blood Cell # 0.00 Thou/mm3 (0.00-0.00); Nucleated Red Blood Cell % 0 /100 WBC (0); Platelet Count 267 Thou/mm3 (140-440); RDW Standard Deviation 39.5 fL (35.1-43.9); Red Blood Count 4.71 Miln/mm3 (4.50-5.90); White Blood Count 6.2 Thou/mm3 (3.8-10.6)
[2025-05-29 00:59] VITALS: BP 123/71; PULSE 87; RESP 19; TEMP 37
[2025-05-29 01:04] LABS: INR 1.2 (0.9-1.3); Partial Thromboplastin Time 27.9 Seconds (22.0-36.0); Prothrombin Time 12.9 Seconds (9.0-12.2)
[2025-05-29 01:05] LABS: Ammonia < 10 uMol/L (11-32)
[2025-05-29] MEDS: SODIUM CHLORIDE 0.9% 1000 ML 1,000 ML 999 ML IV (01:05)
[2025-05-29] MEDS: ONDANSETRON INJ 2 MG/ML INJ 2 ML 4 MG IVP (01:06)
[2025-05-29] MEDS: levETIRAcetam INJ 100 MG/ML VIAL 5ML 2000 MG IVP (01:09)
[2025-05-29] MEDS: ACETAMINOPHEN w/COD 300-30 TABLET 2 TAB PO (01:12)
[2025-05-29 01:15] LABS: Acetaminophen 2.1 mcg/mL (10.0-20.0); Albumin, Serum 4.9 gm/dL (3.5-5.0); Albumin/Globulin Ratio 1.6 (1.2-2.2); Alcohol, Blood Medical < 10.0 mg/dL (0-10.0); Alkaline Phosphatase 57 U/L (46-116); Amylase 31 U/L (30-118); Anion Gap 8 (7-16); Aspartate Amino Transferase 12 U/L (0-34); BUN/Creatinine Ratio 8 Ratio (12-20); Bilirubin,Direct 0.4 mg/dL (0.0-0.3); Bilirubin,Total 3.6 mg/dL (0.3-1.2); Blood Urea Nitrogen 6 mg/dL (9-23); Calcium 9.9 mg/dL (8.3-10.6); Calcium (Corrected) 9.9 mg/dL (8.5-10.1); Carbon Dioxide 28.1 mMol/L (20.0-31.0); Chloride 106 mMol/L (98-107); Creatine Kinase 114 U/L (34-171); Creatinine (Component) 0.8 mg/dL (0.6-1.3); Estimated Creatinine Clearance 126.8 mL/min (>60); Free T4 (Free Thyroxine) 1.49 ng/dL (0.89-1.76); Globulin 3.1 gm/dL (2.3-3.5); Glucose 113 mg/dL (74-106); Lipase 24 U/L (12-53); Magnesium 1.6 mg/dL (1.6-2.6); Osmolality,Calculated 281 (275-295); Potassium 3.7 mMol/L (3.4-5.1); Procalcitonin 0.08 ng/ml (0.0-0.49); Sodium 142 mMol/L (136-145); Thyroid Stimulating Hormone 0.09 uIU/mL (0.55-4.78); Total Protein 8.0 gm/dL (5.7-8.2); Troponin I < 0.020 ng/mL (0.0-0.045); eGFR > 60 See Note
[2025-05-29 01:28] LABS: C-Reactive Protein < 0.5 mg/dL (0.0-0.9); Salicylate < 3.0 mg/dL
[2025-05-29 01:48] LABS: Alanine Aminotransferase 8 U/L (10-49)
--- NOTE | 2025-05-29 02:02 | PC.NURSE ---
0200 REPEATEDLY ASKING PT TO STAY IN BED SAYS MICHAEL ALEXANDER CANT SIT STILL. DR FUNES MADE AWARE.
[2025-05-29] MEDS: HYDROmorphone INJ 2 MG/ML VIAL IVP ×2 (02:25→04:46)
[2025-05-29 02:29] LABS: Collection Type, Urine Clean Catch; Squamous Epithelial Cell,Urine 0 /hpf (0-5)
--- NOTE | 2025-05-29 02:39 | PRELIM_ITS ---
CT scan of the chest, abdomen and pelvis without intravenous contrast (axial sections with sagittal and coronal reformats) May 29, 2025 0140 hours Clinical History: Fall. Comparison: No prior study is available for comparison. Findings: The lungs are hyperinflated. Bibasilar streaky atelectasis is present. The lungs are unremarkable for trauma. There is no pleural effusion or pneumothorax. No evidence of thoracic aortic aneurysm. There is no mediastinal hematoma or fluid collection on this noncontrast study. There is no pericardial effusion. Calcifications are seen in the pancreas. No evidence of peripancreatic fluid collection. The liver, gallbladder, spleen, adrenals and kidneys are unremarkable on this noncontrast study. No evidence of bowel obstruction. Right mid abdomen colostomy is seen. Bowel anastomotic suture line is seen in the right lower abdomen. The appendix is not visualized. The urinary bladder is mildly distended. An inferior vena cava filter is in expected location. There is no free fluid or free air. No evidence of fracture or dislocation. No evidence of soft tissue fluid collection or hematoma . Please note that evaluation of soft tissue/vascular structures and bowel loops is limited due to absence of IV and oral contrast. Impression: No acute visceral or bony injury to the chest, abdomen or pelvis on this noncontrast study. Other findings as described above. Suggest clinical correlation and follow up accordingly. Report Electronically Signed By: Saúl Sotelo 05/29/2025 2:38:24 AM [EST]
[2025-05-29 02:52] LABS: Amphetamine/Methamp Scrn,U Negative (Negative); Barbiturate Screen,Urine Negative (Negative); Benzodiazepines Screen,Urine Negative (Negative); Benzoylecgonine Screen, Ur Negative (Negative); Fentanyl Screen,Urine Positive (Negative); Opiate Screen,Urine Positive (Negative); THC Screen,Urine Negative (Negative)
[2025-05-29 02:54] LABS: Bilirubin,Urine Negative (Negative); Blood,Urine Negative (Negative); Clarity,Urine Clear (Clear/Hazy); Color,Urine Lt-Yellow (Lt Yel-Yel); Culture Indicated,Urine Not Indicated; Glucose, Urine Negative (Negative); Ketones,Urine Trace (Negative); Leukocyte Esterase,Urine Negative (Negative); Nitrite,Urine Negative (Negative); PH,Urine 8.0 (5.0-7.0); Protein,Urine Negative (Neg - Trace); RBC,Urine 2 /hpf (0-3); Specific Gravity,Urine 1.012 (1.001-1.035); Urobilinogen,Urine Negative mg/dL (0.0-1.0); WBC,Urine 3 /hpf (0-5)
--- NOTE | 2025-05-29 03:03 | PRELIM_ITS ---
CT scan of the head without intravenous contrast (axial sections with sagittal and coronal reformats) May 29, 2025 0135 hours Clinical History: Seizure. Findings: The evaluation is limited due to motion artifacts. No definitive evidence of intracranial hemorrhage, mass effect or midline shift. The ventricles and CSF spaces are unremarkable. The calvarium is intact. There is mild mucosal thickening in bilateral maxillary and ethmoid sinuses. The mastoid air cells and the other visualized paranasal sinuses are clear. Impression: No definitive evidence of intracranial hemorrhage, midline shift or calvarial fracture. If there are persistent clinical symptoms or additional clinical concerns consider an MRI. Please also refer to report of maxillofacial CT. Report Electronically Signed By: Saúl Sotelo 05/29/2025 3:02:33 AM [EST]
--- NOTE | 2025-05-29 03:03 | PRELIM_ITS ---
CT maxillofacial without intravenous contrast (axial sections with sagittal and coronal reformats). May 29, 2025 0136 hours Clinical History: Trauma. Comparison: No prior study is available for comparison. Findings: The evaluation is limited due to motion artifacts. There is no evidence of acute fracture. The maxillary sinus and orbital bradley are intact. No fluid levels are seen. No evidence of intraorbital hematoma, proptosis, globe injury or radiodense foreign body. The zygomatic arches and mandible are intact. The visualized soft tissues are unremarkable. Impression: No evidence of acute maxillofacial fracture. Report Electronically Signed By: Saúl Sotelo 05/29/2025 3:03:22 AM [EST]
--- NOTE | 2025-05-29 03:05 | PRELIM_ITS ---
CT scan of the cervical spine without intravenous contrast (axial sections with sagittal and coronal reformats) May 29, 2025 0139 hours Clinical History: Trauma. Findings: There is no evidence of acute fracture or traumatic subluxation. Normal lordotic curvature is maintained. The prevertebral soft tissues are unremarkable. Impression: No evidence of acute fracture or traumatic subluxation. Suggest clinical correlation and follow up accordingly. Report Electronically Signed By: Saúl Sotelo 05/29/2025 3:04:58 AM [EST]
--- NOTE | 2025-05-29 03:05 | PC.NURSE ---
pt has gotten out of bed a few times. this rn educated pt on the risk of getting up and falling. pt states i dont care . pt is A&Ox4 with a gcs of 15 and is aware of risk
[2025-05-29 04:54] VITALS: BP 123/71; PULSE 86; RESP 18; TEMP 36.7
== END 2025-05-29 04:56 | disposition home or self-care (01) ==
LOC: SERX 05-29 04:51
PROVIDERS: Emergency Provider Emergency Medicine; PCP Physician Assistant
DX: G40.909 Epilepsy, unspecified, not intractable, without status epilepticus (principal); R51.9 Headache, unspecified
CPT/HCPCS: 36415; 36600; 70450; 70486; 71045; 71250; 72125; 74176; 80053; 80307; 80320; 80329; 81001; 82010; 82140; 82150; 82248; 82550; 82803; 83605; 83690; 83735; 84145; 84439; 84443; 84484; 85025; 85610; 85730; 86140; 93005; 96361; 96374; 96375; 96376; 99285; J1171; J1953; J2405; J7030; A9270; G0480

== ENCOUNTER 2025-05-29 07:25 | Emergency (ER) | payer OTHER, MEDICAID, SELFPAY ==
[2025-05-29 07:39] VITALS: BP 117/79; PULSE 89; RESP 18; TEMP 36.7; O2SAT 100; BMI 23.7
--- NOTE | 2025-05-29 07:56 | PD.EDRECHK ---
ED Recheck Abnl Lab Rx-RME/HPI General Chief Complaint: Seizure Stated Complaint: Seizure today, abdominal pain Time Seen by Provider: 05/29/25 07:48 Arrival date/time: 05/29/25 07:25 Limitations: no limitations RME / HPI RME / HPI narrative: DR. CAGE MAIN ED EVALUATION: 24 year old male with a history of hernia repair and colostomy presents to the Emergency Department after experiencing a seizure earlier today. He was diagnosed with a seizure disorder yesterday but has not started antiepileptic medication due to pharmacy access issues, [facility] has not opened yet. Patient mentions he has been having abdominal pain at the colostomy site that began 4 days ago. He noticed some blood from the ostomy whenever he ate, which led him to stop eating entirely about 3 days ago out of fear of further bleeding. He reports the bleeding continued this morning. He denies fever, chills, chest pain, shortness of breath, palpitations, sick contacts, or recent travel. He also denies use of alcohol, tobacco, or illicit substances. Related Data Home Medications ?Medication ?Instructions ?Recorded ?Confirmed hydrocodone 5 mg-acetaminophen 325 1 tab PO 3XD 12/03/22 02/25/23 mg tablet albuterol 90 mcg/actuation aerosol 90 mcg inhalation Q6H PRN Wheezing 02/25/23 03/04/23 inhaler famotidine 20 mg tablet 20 mg PO BID 02/25/23 02/25/23 hydroxyzine HCl 25 mg tablet 25 mg PO QID PRN Anxiety 02/25/23 02/25/23 pantoprazole 40 mg tablet,delayed 40 mg PO QDAY 02/25/23 02/25/23 release promethazine 25 mg tablet 25 mg PO Q6H PRN Nausea And 02/25/23 02/25/23 Vomiting Previous Rx's ?Medication ?Instructions ?Recorded folic acid 1 mg tablet 1 mg PO QDAY 30 days #30 tabs 12/17/22 metoprolol tartrate 25 mg tablet 25 mg PO BID 30 days #60 tabs 12/24/22 morphine 15 mg tablet,extended 15 mg PO Q12H PRN severe pain 03/06/23 release (scale score 7-10) #8 tabs levetiracetam 500 mg tablet 500 mg PO BID #60 tabs 05/28/25 (Keppra) tramadol 50 mg tablet 50 mg PO BID PRN pain 5 days #10 05/28/25 tabs gabapentin 100 mg capsule 100 mg PO BID pain #20 caps 05/29/25 (Neurontin) levetiracetam 500 mg tablet 500 mg PO BID #60 tabs 05/29/25 (Keppra) levofloxacin 500 mg tablet 500 mg PO Q24H infection 7 days #7 05/29/25 tabs Allergies Allergy/AdvReac Type Severity Reaction Status Date / Time Fish Containing Products Allergy Mild swelling Verified 05/29/25 07:30 Review of Systems Review of Systems Systems Reviewed: All systems reviewed, normal except as documented Past Medical History Past Medical History CARDIAC: Positive Cardiac Disorders and Hypertension GASTROINTESTINAL: Positive Gastrointestinal Disorders, Pancreatitis and Gastrointestinal Bleed PSYCHO/SOCIAL: Positive Post Traumatic Stress Disorder OTHER HISTORY: Positive Chicken Pox and Clostridium Difficile Surgical History SURGICAL: Positive Abdominal Surgery Social History SMOKING STATUS: Never smoker SUBSTANCE USE: does not use ALCOHOL: Never ED Exam General Limitations: Present no limitations General appearance: Present alert, in no apparent distress and anxious Head Head exam: Present atraumatic, normocephalic and normal inspection Eye Eye exam: Present normal appearance, PERRL and EOMI ENT ENT exam: Present normal exam, normal oropharynx and mucous membranes moist Neck Neck exam: Present normal inspection, full ROM and trachea midline Chest Chest inspection: Present normal inspection and symmetric chest wall rise Respiratory Respiratory exam: Present normal lung sounds bilaterally Cardiovascular Cardiovascular exam: Present regular rate, normal rhythm and normal heart sounds Abdominal Exam Abdominal exam: Present soft, normal bowel sounds and other (The ostomy site appears normal, clean, with no visible blood in the bag or at the site.) Extremities Exam Extremities exam: Present normal inspection and full ROM Back Exam Back exam: Present normal inspection and full ROM Neurological Exam Neurological exam: Present alert, oriented X3 and CN II-XII intact Psychiatric Psychiatric exam: Present normal affect and normal mood Skin Skin exam: Present warm, dry, intact and normal color Course Quality Measures none Orders Category Date Time Status Electronics Technology Instructor NOW Care 05/29/25 07:57 Active Insert IV NOW Care 05/29/25 07:57 Active CBC Stat Lab 05/29/25 08:10 Completed Comprehensive Metabolic Panel Stat Lab 05/29/25 08:10 Completed Partial Thromboplastin Time Stat Lab 05/29/25 08:10 Completed Prothrombin Time with INR Stat Lab 05/29/25 08:10 Completed Gabapentin [Neurontin] Med 05/29/25 10:15 Discontinued 300 mg PO X1 ONE LORazepam [Ativan Inj] Med 05/29/25 07:57 Discontinued 0.5 mg IVP X1 ONE Levofloxacin/D5w 500 mg Ivpb [Levaquin Ivpb] Med 05/29/25 07:57 Discontinued 500 mg in 100 ml IV X1 Morphine Inj Med 05/29/25 07:57 Discontinued 4 mg IVP X1 ONE Ondansetron Inj [Zofran Inj] Med 05/29/25 07:57 Discontinued 4 mg IVP X1 ONE Sodium Chloride 0.9% 1000 ml [Ns] 1,000 ml Med 05/29/25 07:57 Active IV 100 mls/hr levETIRAcetam INJ [Keppra Inj] Med 05/29/25 07:59 Discontinued 1,000 mg IVP X1 ONE Vital Signs Vital signs: Vital Signs Temperature 98.1 F 05/29/25 07:39 Pulse Rate 89 05/29/25 07:39 Respiratory Rate 18 05/29/25 07:39 Blood Pressure 117/79 05/29/25 07:39 Pulse Oximetry (%) 100 05/29/25 07:39 Oxygen Delivery Method Room Air 05/29/25 07:39 Recheck / Abnormal Lab / Rx MDM Narrative MDM Narrative:: I, Josi Sandoval am scribing for and in the presence of Dr. Cage. Elevated total bilirubin, which is chronic. See below previous CT and US from today's date 05/29/25 but from last visit last night. Will give antibiotics in case he has inflammation, possibly colitis. Plan to discharge and patient to follow up with Dr. Lazo on Saturday. Patient data External records reviewed:: [facility] previous records Clinical information provided by:: patient Social determinants that could affect healthcare access:: none Patient has the following chronic illnesses:: hernia repair and colostomy How is presenting disease/condition affected by chronic disease/condition?: exacerbated by Evaluation data The following diagnostics were reviewed and interpreted by me:: lab results Lab and/or radiology exams considered but not ordered:: none Interpretation Summary: Date of Service: 05/29/25 from last visit last night Procedure(s): CT chest abdomen pelvis wo Accession Number(s): [id number] cc: Bk Meeks MD; Del Plata MD; GORDON RAMIREZ~ Examination: CT chest, without intravenous contrast. CT abdomen, without intravenous contrast. CT pelvis, without intravenous contrast. 2-D sagittal and coronal reconstructions. 3-D reconstructions. Date and time of exam:May 29 2025 1340 hours INDICATIONS: Seizure today, patient fell with injury to the chest and abdomen, chest pain abdomen pain CTDI vol (mgy) 10.61 DLP (MGycm)847 Technique: Multiple CT images, 3.0 mm slice thickness, obtained chest, abdomen, pelvis, with the high-resolution 64 slice scanner.. Sagittal and coronal 2-D reconstructions are obtained. 3-D reconstructions Low dose protocols were performed. One or more of the following dose reduction techniques were used; automated exposure control, adjustment of the mA and/or KV according to patient size, use of iterative reconstruction technique. Findings: The thoracic aorta pulmonary arteries intact No pneumopericardium No pneumothorax pulmonary contusion or hemothorax The sternum thoracic lumbar and sacral segments appear intact Ribs appear intact No liver or splenic or renal laceration IVC filter satisfactory position Right colostomy No bowel obstruction Aorta intact No free blood in the abdomen or pelvis Urinary bladder intact Hips bones of the pelvis intact Impression : Thoracic aorta pulmonary arteries intact No pneumopericardium, pneumothorax, pulmonary contusion or hemothorax. No abdominal parenchymal laceration Abdominal aorta intact. No free fluid in the abdomen or pelvis. Osseous structures appear intact Dictated By: Del Plata MD Date of Service: 05/29/25 from last visit last night Procedure(s): XR chest 1V portable Accession Number(s): [id number] cc: Bk Meeks MD; Del Plata MD; GORDON RAMIREZ~ Examination: AP chest single view TECHNIQUE: AP portable upright chest single view Date and time: May 29, 2025, 0122 hours INDICATIONS: Chest pain shortness of breath today. FINDINGS: Minimal scarring at the left base No pneumonia or pulmonary edema. Normal heart size. IMPRESSION: No pneumonia or pulmonary edema. Dictated By: Del Plata MD Medications / Prescriptions Medications or Prescriptions considered but not ordered:: none Medication administrations:: Medication Administration History Sodium Chloride (Ns) 1,000 mls @ 100 mls/hr IV .Q10H ONE Stop: 05/29/25 17:56 Last Admin: 05/29/25 09:25 Dose: 100 mls/hr Documented By: EF Discontinued Medications Gabapentin (Gabapentin 300 Mg Capsule) 300 mg PO X1 ONE Stop: 05/29/25 10:16 Last Admin: 05/29/25 10:24 Dose: 300 mg Documented By: SM Levofloxacin/Dextrose (Levaquin Ivpb) 500 mg in 100 mls @ 100 mls/hr IV X1 ONE Stop: 05/29/25 08:56 Last Infusion: 05/29/25 10:26 Dose: Infused Documented By: Admin: 05/29/25 09:25 Dose: 100 mls/hr Documented By: EF Levetiracetam (Levetiracetam Inj 100 Mg/Ml Vial 5ml) 1,000 mg IVP X1 ONE Stop: 05/29/25 08:00 Last Admin: 05/29/25 09:11 Dose: Not Given Documented By: DO Non-Admin Reason: Cancelled by Provider Lorazepam (Lorazepam 2 Mg/Ml Vial) 0.5 mg IVP X1 ONE Stop: 05/29/25 07:58 Last Admin: 05/29/25 09:24 Dose: 0.5 mg Documented By: EF Morphine Sulfate (Morphine Sulf Inj 10 Mg/Ml Vial) 4 mg IVP X1 ONE Stop: 05/29/25 07:58 Last Admin: 05/29/25 09:24 Dose: 4 mg Documented By: EF Ondansetron HCl (Ondansetron Inj 2 Mg/Ml Inj 2 Ml) 4 mg IVP X1 ONE; Protocol Stop: 05/29/25 07:58 Last Admin: 05/29/25 09:24 Dose: 4 mg Documented By: EF see above if any Consultations Consultation(s) initiated? (list below): No Diagnosis Recheck Differential Diagnosis: other (Breakthrough seizure due to untreated new-onset epilepsy, colostomy site bleeding due to irritation or mucosal erosion, and functional bowel disorder or inflammatory response near the ostomy.) Most likely diagnosis given after review of the tests above:: Colostomy complication, unspecified Intractable abdominal pain Anxiety Admission Indicated Admission indicated?: not indicated Admission Request Was there a request for admission?: No Disposition Plan Disposition Plan: Discharge Discharge Attestation Discharge Attestation: The patient and all family members were given an opportunity to ask questions and understood the discharge instructions. Discharge instructions specifically effects, indications for sooner follow up or return to the emergency department, and the expected course of current diagnosis. Patient condition: Stable Discharge Plan Plan Patient Disposition: HOME (Self Care) Patient condition on transfer: Stable Prescriptions/Referrals Prescriptions/Med Rec: New gabapentin [Neurontin] 100 mg capsule 100 mg PO BID MDD 2 Qty: 20 0RF levofloxacin 500 mg tablet 500 mg PO Q24H MDD 1 7 Days Qty: 7 0RF No Action hydrocodone-acetaminophen 5-325 mg tablet 1 tab PO 3XD folic acid 1 mg tablet 1 mg PO QDAY 30 Days Qty: 30 3RF metoprolol tartrate 25 mg tablet 25 mg PO BID 30 Days Qty: 60 2RF famotidine 20 mg Tablet 20 mg PO BID pantoprazole 40 mg Tablet,Delayed Release (Dr/Ec) 40 mg PO QDAY promethazine 25 mg Tablet 25 mg PO Q6H PRN (Reason: Nausea And Vomiting) hydroxyzine HCl 25 mg Tablet 25 mg PO QID PRN (Reason: Anxiety) albuterol 90 mcg/actuation Aerosol 90 mcg INHALATION Q6H PRN (Reason: Wheezing) morphine 15 mg tablet extended release 15 mg PO Q12H MDD 30 mg PRN (Reason: severe pain (scale score 7-10)) Qty: 8 0RF levetiracetam [Keppra] 500 mg tablet 500 mg PO BID Qty: 60 0RF tramadol 50 mg tablet 50 mg PO BID PRN (Reason: pain) 5 Days Qty: 10 0RF levetiracetam [Keppra] 500 mg tablet 500 mg PO BID Qty: 60 0RF Referrals: Koki Lazo MD [Physician] - 05/31/25 (Case discussed with Dr. Lazo and he is expecting you to call him on Saturday.) Gordon Ramirez PA-C [Primary Care Provider] - In 1 week Problem List Clinical Impression: Colostomy complication, unspecified, Intractable abdominal pain, Anxiety Patient/Caregiver Discharge Instructions Additional Instructions: Please follow-up with your primary care physician within 2-3 days and follow-up with Dr. Lazo on Saturday. Return to the Emergency Department as needed. Print Language: [place] Stand Alone Forms: [employer] Info., Patient Portal Info Letter
[2025-05-29 08:49] LABS: Basophils # (Auto) 0.0 Thou/mm3 (0.0-0.2); Basophils % (Auto) 0 % (0-2.5); Eosinophils # (Auto) 0.0 Thou/mm3 (0.0-0.5); Eosinophils % (Auto) 0 % (0-10); Hematocrit 38.7 % (41.0-53.0); Hemoglobin 13.1 g/dL (13.5-16.0); Immature Granulocytes Auto 0.02 Thou/mm3 (0.00-0.00); Lymphocytes # (Auto) 2.1 Thou/mm3 (1.0-4.8); Lymphocytes % (Auto) 28 % (10-50); Mean Corpuscular HGB Conc 33.9 g/dl (31.0-37.0); Mean Corpuscular Hemoglobin 28.6 pg (25.0-35.0); Mean Corpuscular Volume 85 fL (80-100); Monocytes # (Auto) 0.5 Thou/mm3 (0.0-0.8); Monocytes % (Auto) 7 % (0-12); Neutrophils # (Auto) 4.9 Thou/mm3 (1.8-7.7); Neutrophils % (Auto) 64 % (37-80); Nucleated Red Blood Cell # 0.00 Thou/mm3 (0.00-0.00); Nucleated Red Blood Cell % 0 /100 WBC (0); Platelet Count 267 Thou/mm3 (140-440); RDW Standard Deviation 39.6 fL (35.1-43.9); Red Blood Count 4.58 Miln/mm3 (4.50-5.90); White Blood Count 7.5 Thou/mm3 (3.8-10.6)
[2025-05-29 08:56] LABS: INR 1.2 (0.9-1.3); Partial Thromboplastin Time 28.8 Seconds (22.0-36.0); Prothrombin Time 12.8 Seconds (9.0-12.2)
[2025-05-29 09:08] LABS: Alanine Aminotransferase < 7 U/L (10-49); Albumin, Serum 4.9 gm/dL (3.5-5.0); Albumin/Globulin Ratio 1.7 (1.2-2.2); Alkaline Phosphatase 56 U/L (46-116); Anion Gap 10 (7-16); Aspartate Amino Transferase 12 U/L (0-34); BUN/Creatinine Ratio 9 Ratio (12-20); Bilirubin,Total 3.7 mg/dL (0.3-1.2); Blood Urea Nitrogen 6 mg/dL (9-23); Calcium 9.7 mg/dL (8.3-10.6); Calcium (Corrected) 9.7 mg/dL (8.5-10.1); Carbon Dioxide 27.5 mMol/L (20.0-31.0); Chloride 106 mMol/L (98-107); Creatinine (Component) 0.7 mg/dL (0.6-1.3); Estimated Creatinine Clearance 145.6 mL/min (>60); Globulin 2.9 gm/dL (2.3-3.5); Glucose 103 mg/dL (74-106); Osmolality,Calculated 282 (275-295); Potassium 3.7 mMol/L (3.4-5.1); Sodium 143 mMol/L (136-145); Total Protein 7.8 gm/dL (5.7-8.2); eGFR > 60 See Note
[2025-05-29 09:16] VITALS: PULSE 73
[2025-05-29] MEDS: LORazepam 2 MG/ML VIAL 0.5 MG IVP (09:24)
[2025-05-29] MEDS: ONDANSETRON INJ 2 MG/ML INJ 2 ML 4 MG IVP (09:24)
[2025-05-29] MEDS: MORPHINE SULF INJ 10 MG/ML VIAL 4 MG IVP ×2 (09:24→12:05)
[2025-05-29] MEDS: SODIUM CHLORIDE 0.9% 1000 ML 1,000 ML 100 ML IV (09:25)
[2025-05-29] MEDS: LEVOFLOXACIN/D5W 500 MG IVPB 500 MG/100 ML BAG 100 MG IV (09:25)
[2025-05-29] MEDS: GABAPENTIN 300 MG CAPSULE PO (10:24)
[2025-05-29 10:34] VITALS: BP 142/76; PULSE 81; RESP 17; TEMP 36.8; O2SAT 98
[2025-05-29 12:04] VITALS: BP 114/81; PULSE 76; RESP 18; TEMP 36.7; O2SAT 100
== END 2025-05-29 12:20 | disposition home or self-care (01) ==
PROVIDERS: Emergency Provider Family Medicine; PCP Physician Assistant
DX: R10.9 Unspecified abdominal pain (principal); F41.9 Anxiety disorder, unspecified; K94.09 Other complications of colostomy; R07.9 Chest pain, unspecified; R06.02 Shortness of breath; R56.9 Unspecified convulsions
CPT/HCPCS: 36415; 80053; 85025; 85610; 85730; 96365; 96375; 96376; 99283; J1956; J2060; J2270; J2405; J7030; A9270

== ENCOUNTER 2025-08-12 12:00 | Emergency (ER) | payer SELFPAY ==
[2025-08-12 12:28] VITALS: BP 114/73; PULSE 75; RESP 16; TEMP 36.8; O2SAT 98; BMI 23.0
--- NOTE | 2025-08-12 12:33 | PD.EDADULT ---
ED General RME/HPI General Chief complaint: General Adult/Misc Complain Stated complaint: NEEDS COLOSTOMY CHANGED Time Seen by Provider: 08/12/25 12:18 Arrival date/time: 08/12/25 12:00 24-year-old male presents to the Emergency Department stating that he needs replacement of his colostomy bags Limitations: no limitations Related Data Home Medications ?Medication ?Instructions ?Recorded ?Confirmed hydrocodone 5 mg-acetaminophen 325 1 tab PO 3XD 12/03/22 02/25/23 mg tablet albuterol 90 mcg/actuation aerosol 90 mcg inhalation Q6H PRN Wheezing 02/25/23 03/04/23 inhaler famotidine 20 mg tablet 20 mg PO BID 02/25/23 02/25/23 hydroxyzine HCl 25 mg tablet 25 mg PO QID PRN Anxiety 02/25/23 02/25/23 pantoprazole 40 mg tablet,delayed 40 mg PO QDAY 02/25/23 02/25/23 release promethazine 25 mg tablet 25 mg PO Q6H PRN Nausea And 02/25/23 02/25/23 Vomiting Previous Rx's ?Medication ?Instructions ?Recorded folic acid 1 mg tablet 1 mg PO QDAY 30 days #30 tabs 12/17/22 metoprolol tartrate 25 mg tablet 25 mg PO BID 30 days #60 tabs 12/24/22 morphine 15 mg tablet,extended 15 mg PO Q12H PRN severe pain 03/06/23 release (scale score 7-10) #8 tabs levetiracetam 500 mg tablet 500 mg PO BID #60 tabs 05/28/25 (Keppra) gabapentin 100 mg capsule 100 mg PO BID pain #20 caps 05/29/25 (Neurontin) levetiracetam 500 mg tablet 500 mg PO BID #60 tabs 05/29/25 (Keppra) Allergies Allergy/AdvReac Type Severity Reaction Status Date / Time Fish Containing Products Allergy Mild swelling Verified 08/12/25 12:01 Review of Systems Review of Systems Systems Reviewed: All systems reviewed, normal except as documented Constitutional Constitutional: Reports system reviewed and no additional complaints, except as documented, Denies fever(s) and Denies headache(s) Eyes Eyes: Reports system reviewed and no additional complaints, except as documented and Denies blurry vision ENT Ears, Nose, Mouth, and Throat: Reports system reviewed and no additional complaints, except as documented, Denies headache(s), Denies nasal congestion and Denies nasal discharge Cardiovascular Cardiovascular: Reports system reviewed and no additional complaints, except as documented, Denies chest pain and Denies dyspnea Respiratory Respiratory: Reports system reviewed and no additional complaints, except as documented, Denies chest congestion, Denies cough and Denies dyspnea Gastrointestinal Gastrointestinal: Reports system reviewed and no additional complaints, except as documented and Denies abdominal pain Integumentary/Breasts Skin/Breast: Reports system reviewed and no additional complaints, except as documented, Denies rash and Reports other (Ostomy in place) Neurologic Neurologic: Reports system reviewed and no additional complaints, except as documented, Reports as per HPI and Denies headache(s) Past Medical History Past Medical History NEUROLOGIC: Negative Neurological Disorders or Seizures CARDIAC: Positive Cardiac Disorders, Deep Vein Thrombosis and Hypertension; Negative Myocardial Infarction, Cardiac Arrhythmia, Atrial Fibrillation, Angina, Heart Murmur, Coronary Artery Disease, Atherosclerotic Heart Disease, Peripheral Vascular Disease, Hypercholesterolemia, Aneurysm, Congestive Heart Failure, Congenital Heart Disease, Valvular Heart Disease, Rheumatic Fever, Cardiomyopathy, Edema, Pericarditis, Cellulitis, Hypotension or Varicose Veins RESPIRATORY: Negative Chronic Obstructive Pulmonary Disease (COPD) or Asthma GASTROINTESTINAL: Positive Gastrointestinal Disorders, Pancreatitis and Gastrointestinal Bleed; Negative Hepatitis GENITOURINARY: Negative Genitourinary Disorders or Renal Disease REPRODUCTIVE: Negative Testicular Cancer MUSCULOSKELETAL: Negative Musculoskeletal Disorders ENT: Negative Cataracts ENDOCRINE: Negative Endocrine Disorders, Diabetes Mellitus Type 1 or Diabetes Mellitus Type 2 HEMATOLOGIC: Negative Blood Disorders, Anemia, Leukemia, Hemophilia, Thalassemia or Sickle Cell Disease PSYCHO/SOCIAL: Positive Post Traumatic Stress Disorder OTHER HISTORY: Positive Chicken Pox and Clostridium Difficile; Negative Autoimmune Disease, Blood Transfusions, Blood Transfusion Reaction, Anesthesia Reactions, Organ Transplant, MRSA, VRSA, Vancomycin-Resistant Enterococci, Human Immunodeficiency Virus (HIV), Measles, Mumps, Rubella ([place]ish Measles), Pertussis, Cancer or Testicular Cancer Family History FAMILY HISTORY: Negative Family Psychiatric Problems, Family Respiratory Disorders, Family Cardiac Disorders, Family Gastrointestinal Problems, Family Cancer, Family Surgery or Family Anesthesia Reaction Surgical History SURGICAL: Positive Abdominal Surgery; Negative Pacemaker, Endocrine Surgery, Thyroidectomy, Ear Surgery, Tympanostomy Tube, Eye Surgery, Nose Surgery, Oral Surgery, Tonsillectomy, Adenoidectomy, Cochlear Implant, Corneal Transplant, Throat Surgery, Tracheostomy, Nephrectomy, Transurethral Resection, Joint Replacement, Neurologic Surgery, Brain Shunt, Vasectomy or Organ Transplant Social History SMOKING STATUS: Never smoker SUBSTANCE USE: does not use ED Exam General Limitations: Present no limitations General appearance: Present alert and in no apparent distress Head Head exam: Present atraumatic, normocephalic and normal inspection Eye Eye exam: Present normal appearance, PERRL and EOMI; Absent conjunctival injection ENT ENT exam: Present normal exam, normal oropharynx and mucous membranes moist Neck Neck exam: Present normal inspection, full ROM and trachea midline Chest Chest inspection: Present normal inspection and symmetric chest wall rise Respiratory Respiratory exam: Present normal lung sounds bilaterally Cardiovascular Cardiovascular exam: Present regular rate, normal rhythm and normal heart sounds Abdominal Exam Abdominal exam: Present soft, normal bowel sounds and other (Colostomy in place); Absent distention, tenderness, guarding, rebound or rigidity Extremities Exam Extremities exam: Present normal inspection and full ROM Back Exam Back exam: Present normal inspection and full ROM Neurological Exam Neurological exam: Present alert, oriented X3 and CN II-XII intact Psychiatric Psychiatric exam: Present normal affect and normal mood Skin Skin exam: Present warm and dry Course Quality Measures none Vital Signs Vital signs: Vital Signs Temperature 98.2 F 08/12/25 12:28 Pulse Rate 75 08/12/25 12:28 Respiratory Rate 16 08/12/25 12:28 Blood Pressure 114/73 08/12/25 12:28 Pulse Oximetry (%) 98 08/12/25 12:28 Oxygen Delivery Method Room Air 08/12/25 12:28 O2 saturation 98% room air with no limits Discharge Plan Plan Patient Disposition: HOME (Self Care) Discharge Disposition comment: Stable Prescriptions/Referrals Prescriptions/Med Rec: No Action hydrocodone-acetaminophen 5-325 mg tablet 1 tab PO 3XD folic acid 1 mg tablet 1 mg PO QDAY 30 Days Qty: 30 3RF metoprolol tartrate 25 mg tablet 25 mg PO BID 30 Days Qty: 60 2RF famotidine 20 mg Tablet 20 mg PO BID pantoprazole 40 mg Tablet,Delayed Release (Dr/Ec) 40 mg PO QDAY promethazine 25 mg Tablet 25 mg PO Q6H PRN (Reason: Nausea And Vomiting) hydroxyzine HCl 25 mg Tablet 25 mg PO QID PRN (Reason: Anxiety) albuterol 90 mcg/actuation Aerosol 90 mcg INHALATION Q6H PRN (Reason: Wheezing) morphine 15 mg tablet extended release 15 mg PO Q12H MDD 30 mg PRN (Reason: severe pain (scale score 7-10)) Qty: 8 0RF levetiracetam [Keppra] 500 mg tablet 500 mg PO BID Qty: 60 0RF levetiracetam [Keppra] 500 mg tablet 500 mg PO BID Qty: 60 0RF gabapentin [Neurontin] 100 mg capsule 100 mg PO BID MDD 2 Qty: 20 0RF Problem List Clinical Impression: Colostomy care Patient/Caregiver Discharge Instructions Additional Instructions: Please follow up with your primary care doctor in the next 24-48hrs for any worsening symptoms return here immediately Print Language: [place]ian Stand Alone Forms: [employer] Info., Patient Portal Info Letter PA/[employer] Supervising Physician PA/NAKUL Supervising Physician: Dr. goss MDM Narrative MDM hospital course (for use when minimal MDM required): 24-year-old male presents to the Emergency Department stating that he needs replacement of his colostomy bags On exam patient well-appearing patient does not appear ill or toxic no acute distress Patient given replacement colostomy bags Patient discharged home in no distress to follow-up with primary care doctor in the next 24 to 48 hours and for any worsening symptoms to return to the ER immediately Clinical Information Provided by: patient Medical Records reviewed [facility] Meds/Rx considered, not ordered None Labs/Rad/Tests considered, not ordered None Chronic Illness/Social Conditions which may negatively complicate care or outcome(s)-explain: None or not applicable EKG EKG not done Labs Labs: none Imaging Imaging interpretation: none Medication Administration(s) none Diagnosis Differential Diagnosis ED Complaint MDM: Colostomy bag change
== END 2025-08-12 12:41 | disposition home or self-care (01) ==
LOC: SERX 12:50
PROVIDERS: Emergency Provider Nurse Practitioner Primary Care; PCP Physician Assistant
DX: Z43.3 Encounter for attention to colostomy (principal)
CPT/HCPCS: 99281